=== PATIENT | male | born 1950 | race Caucasian/White ===

== ENCOUNTER → 2021-11-21 11:54 | Outpatient (CLI) | payer MEDICARE, BC, SELFPAY ==
--- NOTE | 2021-11-21 | CA_ITS ---
FINAL REPORT TECHNIQUE: Color Doppler, duplex Doppler and compression sonography of the left lower extremity deep venous systems was performed. CLINICAL HISTORY: HTN, HLD. Takes 81 mg ASA daily. Patient states he was working 1 week ago with a mare in barn when it got loose. His left leg hit a cast iron bench. A large knot at the distal mid ankle/calf area appeared immediately on LLE. He had xrays done 11/16 which he states were negative. Knot is still present for today's study 1 week post trauma. FINDINGS: There is no evidence of deep venous thrombosis from the level of the groin to the calf. The veins are patent and compressible. There is a 3.6 cm heterogeneous collection in the distal medial calf which may represent a hematoma. IMPRESSION: No evidence of deep venous thrombosis left lower extremity. Reviewed, Interpreted and Dictated by Hossein Chacon III, MD Transcribed by Funmi Peoples Authenticated and [facility]
== END ==
PROVIDERS: PCP Nurse Practitioner Family; Visit Provider Nurse Practitioner Family
DX: M79.605 Pain in left leg (principal); M79.89 Other specified soft tissue disorders
CPT/HCPCS: 93971

== ENCOUNTER 2022-09-25 11:59 | Emergency (ER) | payer MEDICARE, BC, SELFPAY ==
[2022-09-25 12:00] VITALS: BP 166/102; PULSE 90; RESP 18; TEMP 36.7; O2SAT 98; BMI 28.7
--- NOTE | 2022-09-25 12:04 | ED_ITS ---
Discharge Plan Disposition Patient Disposition: Home, Self-Care Prescriptions Prescriptions: New doxycycline hyclate 100 mg capsule 100 mg PO BID 10 Days Qty: 20 0RF Referrals Follow up/Referrals: Adi Kaur MD [Primary Care Provider] - See instructions Activity Restrictions/Add. Instructions Additional Instructions/Restrictions: You should start seeing significant improvement in 48 to 72 hours please follow- up with your doctor or return to the emergency department with any other concerning symptoms or if you are not improving. Please complete your antibiotic course even if you are completely resolved within a few days. Clinical Impressions Clinical Impression: Tick bite of axillary region, Cellulitis of axillary region Instructions Patient Instructions: DI for Skin Abscess Discharge ED Provider: Eunice Sharma General Adult HPI General Chief complaint: Skin/Abscess/Foreign Body Stated complaint: R armpit area, tick bite Time Seen by Provider: 09/25/22 12:04 History of Present Illness HPI narrative: Patient is a 71-year-old male presenting with some erythema surrounding a recent tick bite. He believes that the tick bit him and was engorged starting on Tuesday yesterday his removed the tick with forceps and believes she got most of it but was not sure whether or not as there is some remaining embedded. Patient has had some spreading redness without a target-like but just confluent redness. No fevers or chills no cardiac symptoms no other systemic signs of illness. Related Data Previous Rx's Medication Instructions Recorded doxycycline hyclate 100 mg capsule 100 mg PO BID 10 days #20 caps 09/25/22 Allergies Allergy/AdvReac Type Severity Reaction Status Date / Time NO KNOWN ALLERGIES - NKA Allergy Unknown Uncoded 12/01/21 13:43 [facility] Disclaimer: The information contained in this section may have been updated after the patient was seen, as this information can be updated by other users. Social History Smoking Status: Never smoker alcohol intake: never current occupational status: employed Travel in the last 8 weeks: None ROS Obtained: Yes All systems reviewed & no additional complaints except as documented Physical Exam General General appearance: alert Respiratory Respiratory exam: Present normal lung sounds bilaterally; Absent respiratory distress Cardiovascular Cardiovascular exam: Present regular rate; Absent tachycardia Neurological Exam Neurological exam: Present alert Skin Skin exam: Present other (On the right anterior lateral chest nearing the axilla there is a 10 x 5 area of erythema that is confluence no fluctuance no foreign body noted) Medical Decision Making Osmin Inquiry Pt receiving controlled substance: No Vital Signs: 09/25/22 12:00 Temperature 98.1 F Temperature Source Oral Pulse Rate [Right Radial] 90 Respiratory Rate 18 Blood Pressure [Left Arm] 166/102 H Blood Pressure Mean [Left Arm] 123 Blood Pressure Source [Left Arm] Automatic Cuff Blood Pressure Position [Left Arm] Sitting 02 Sat by Pulse Oximetry 98 Oxygen Delivery Method Room Air Medical Decision Narrative: 71-year-old male presenting after a tick bite that was embedded. On physical exam there is no evidence of any remaining foreign body. I did a superficial musculoskeletal ultrasound with a linear probe and did not see any retained foreign bodies that would be worth any type of exploration. There was cobblestoning on this ultrasound consistent with cellulitis. No localized drainable fluid collection. This is not consistent with an erythema migrans rash. I discussed with the family that Lyme disease is not endemic in this part [place] of be more worried about something like [place] spotted fever. In the setting of clear cellulitis we will go ahead and initiate doxycycline for this patient which should cover any tickborne related illness as well as treat for common pathogens of cellulitis. I told him that this should take 48 to 72 hours to start to see an improvement to return to the emergency department or to their physician with any other concerns or the patient is not improving. Patient was discharged in stable condition. Critical Care Time Critical Care Time Critical Care Time: No Attestation: On , the high probability of a clinically significant, sudden or life threatening deterioration of the following system(s) required my full and direct attention, intervention and personal management. The time I documented below is in addition to time spent performing reported procedures but includes the following listed in this critical care notation.
[2022-09-25 12:25] VITALS: BP 166/102; PULSE 90; RESP 18; TEMP 36.7; O2SAT 98
== END 2022-09-25 12:27 | disposition home or self-care (01) ==
PROVIDERS: Emergency Provider Student in an Organized Health Care Education/Training Program; PCP Internal Medicine Adolescent Medicine
DX: L03.111 Cellulitis of right axilla (principal); S40.861S Insect bite (nonvenomous) of right upper arm, sequela; W57.XXXS Bitten or stung by nonvenomous insect and other nonvenomous arthropods, sequela
CPT/HCPCS: 99283; 99284